=== PATIENT | female | born 1955 | race Caucasian/White ===

== ENCOUNTER 2022-03-24 13:04 | Outpatient (CLI) | payer MEDICARE, OTHER, SELFPAY ==
--- NOTE | 2022-03-24 13:00 | ECG_ITS ---
Measurements Intervals [place] Rate: 65 P: 23 HI: 170 QRS: 22 QRSD: 96 T: 41 QT: 383 QTc: 401 Interpretive Statements SINUS RHYTHM PROMINENT R-WAVES ANTERIORLY, CONSIDER RIGHT VENTRICULAR ENLARGEMENT NO PREVIOUS ECG AVAILABLE FOR COMPARISON Electronically Signed On 03-24-2022 13:53:00 CDT by Kerry Tam M.D.
== END 2022-03-24 13:05 | disposition home or self-care (01) ==
LOC: ANHSURGERY 13:08
PROVIDERS: Visit Provider Orthopaedic Surgery
DX: Z01.810 Encounter for preprocedural cardiovascular examination (principal); I10 Essential (primary) hypertension
CPT/HCPCS: 93005